=== PATIENT | male | born 1950 | race Caucasian/White ===

== ENCOUNTER 2020-07-28 17:21 | Observation (INO) | payer MEDICARE ==
[~2020-07-28] VITALS: Ht 180.3 cm; Wt 136.1 kg
[2020-07-28 18:25] LABS: Alanine Aminotransfer (ALT/SGP 79 U/L (12-78); Albumin, Blood 3.3 g/dL (3.4-5.0); Albumin/Globulin Ratio 0.8 (0.8-1.8); Alk Phos 317 U/L (50-136); Anion Gap 7 mmol/L (6-16); Aspartate Aminotrans (AST/SGOT 120 U/L (12-37); Bilirubin, Total 1.5 mg/dL (0.1-1.0); Blood Urea Nitrogen 57 mg/dL (8-24); Bun/Creatinine Ratio 16.8 (12.0-20.0); CO2, Blood 24 mmol/L (21-32); Calcium, Blood 8.7 mg/dL (8.5-10.1); Chloride, Blood 109 mmol/L (98-108); Globulin, Blood 4.2 g/dL (2.2-4.0); Glomerular Filtration Rate 19 (60-); Glucose, Blood 144 mg/dL (70-99); Potassium, Blood 4.4 mmol/L (3.5-5.5); Sodium, Blood 140 mmol/L (136-145); Total Protein, Blood 7.5 g/dL (6.4-8.2); Troponin I <0.015 ng/mL (0.000-0.040)
[2020-07-28 18:34] LABS: BASOPHILS ABSOLUTE AUTO 0.04 K/mm3 (0.00-0.23); BASOPHILS PERCENT AUTO 0 % (0-2); EOSINOPHILS ABSOLUTE AUTO 0.05 K/mm3 (0.00-0.68); EOSINOPHILS PERCENT AUTO 0 % (0-6); Hematocrit 42.3 % (37.0-53.0); Hemoglobin 13.9 g/dL (13.5-17.5); IMMATURE GRAN ABSOLUTE AUTO 0.05 K/mm3 (0.00-0.10); IMMATURE GRAN PERCENT AUTO 0 % (0-1); LYMPHOCYTES ABSOLUTE AUTO 0.81 K/mm3 (0.84-5.20); LYMPHOCYTES PERCENT AUTO 7 % (21-46); MONOCYTES ABSOLUTE AUTO 0.61 K/mm3 (0.16-1.47); MONOCYTES PERCENT AUTO 5 % (4-13); Mean Corpuscular HGB 28.4 pg (26.0-34.0); Mean Corpuscular HGB Conc 32.9 g/dL (31.5-36.5); Mean Corpuscular Volume 86 fL (80-100); Mean Platelet Volume 9.9 fL (9.1-12.4); NEUTROPHILS ABSOLUTE AUTO 10.15 K/mm3 (1.96-9.15); NEUTROPHILS PERCENT AUTO 87 % (41-73); Platelet Count 286 K/mm3 (150-400); RDW Coefficient Variation 13.9 % (11.7-14.2); RDW Standard Deviation 43.8 fL (35.1-46.3); White Blood Cell Count 11.71 K/mm3 (4.00-11.30)
[2020-07-28] MEDS ORDERED: Ativan0.5 MG PO (20:55)
[2020-07-28] MEDS ORDERED: FLUT1DIS2 (22:27)
[2020-07-28] MEDS ORDERED: VERA240ER PO (22:27)
[2020-07-28] MEDS ORDERED: SERT100 PO (22:28)
[2020-07-28] MEDS ORDERED: GUAI600T33 PO (22:29)
[2020-07-28] MEDS ORDERED: Flonase 0.05% N16 GM (22:31)
[2020-07-28] MEDS ORDERED: SODBIC650 PO (22:33)
[2020-07-29 06:08] LABS: Albumin, Blood 2.7 g/dL (3.4-5.0); Albumin/Globulin Ratio 0.7 (0.8-1.8); Bilirubin, Total 3.1 mg/dL (0.1-1.0); Calcium, Blood 8.9 mg/dL (8.5-10.1); Creatinine, Blood 3.32 mg/dL (0.60-1.20); Globulin, Blood 3.8 g/dL (2.2-4.0); Potassium, Blood 4.6 mmol/L (3.5-5.5); Total Protein, Blood 6.5 g/dL (6.4-8.2)
[2020-07-29] MEDS ORDERED: CHLO25B PO (16:17)
[2020-07-29] MEDS ORDERED: TAMS.4ER PO (16:17)
[2020-07-29] MEDS ORDERED: Hydralazine HCl10 MG PO (16:25)
[2020-07-29] MEDS ORDERED: OMEP20ER PO (16:25)
--- NOTE | 2020-07-30 04:14 | NUR ---
SHIFT SUMMARY A/O, ABLE TO MAKE NEEDS KNOWN. COOPERATIVE WITH CARE. CALLS AND ANSWERS QUESTIONS APPROPRIATELY. C/O PAIN/DISCOMFORT TO EPIGASTRIC REGION OF ABDOMEN; RATING 3-4/10. RECIEVED ONE TIME ORDER FROM ON-CALL PROVIDER FOR MORPHINE 2MG. STATED RELIEF AND NOW PAIN IS CREEPING BACK UP. APPEARED TO REST OFF AND ON OVERNIGHT. INDPENDENT IN ROOM. TELE RUNNING SR IN THE 70s. VSS/AFEBRILE. BED REMAINS IN LOWEST POSITION. CALL LIGHT AND BELONGINS WITHIN REACH. CONTINUE WITH CURRENT PLAN OF CARE. REPORT TO ONCOMING RN.
[2020-07-30 05:43] LABS: BASOPHILS ABSOLUTE AUTO 0.04 K/mm3 (0.00-0.23); BASOPHILS PERCENT AUTO 0 % (0-2); EOSINOPHILS ABSOLUTE AUTO 0.06 K/mm3 (0.00-0.68); EOSINOPHILS PERCENT AUTO 1 % (0-6); Hematocrit 39.4 % (37.0-53.0); Hemoglobin 12.8 g/dL (13.5-17.5); IMMATURE GRAN ABSOLUTE AUTO 0.02 K/mm3 (0.00-0.10); IMMATURE GRAN PERCENT AUTO 0 % (0-1); LYMPHOCYTES ABSOLUTE AUTO 0.54 K/mm3 (0.84-5.20); LYMPHOCYTES PERCENT AUTO 6 % (21-46); MONOCYTES PERCENT AUTO 7 % (4-13); Mean Corpuscular HGB 28.4 pg (26.0-34.0); Mean Corpuscular HGB Conc 32.5 g/dL (31.5-36.5); Mean Corpuscular Volume 87 fL (80-100); Mean Platelet Volume 10.2 fL (9.1-12.4); NEUTROPHILS ABSOLUTE AUTO 8.29 K/mm3 (1.96-9.15); NEUTROPHILS PERCENT AUTO 86 % (41-73); Platelet Count 219 K/mm3 (150-400); RDW Coefficient Variation 14.3 % (11.7-14.2); RDW Standard Deviation 45.5 fL (35.1-46.3); Red Blood Cell Count 4.51 M/mm3 (4.30-5.90); White Blood Cell Count 9.65 K/mm3 (4.00-11.30)
[2020-07-30 06:08] LABS: Albumin, Blood 2.6 g/dL (3.4-5.0); Albumin/Globulin Ratio 0.7 (0.8-1.8); Bilirubin, Total 4.1 mg/dL (0.1-1.0); Bun/Creatinine Ratio 15.3 (12.0-20.0); Calcium, Blood 8.8 mg/dL (8.5-10.1); Creatinine, Blood 3.59 mg/dL (0.60-1.20); Globulin, Blood 3.9 g/dL (2.2-4.0); Potassium, Blood 4.6 mmol/L (3.5-5.5); Total Protein, Blood 6.5 g/dL (6.4-8.2)
[2020-07-30 15:30] LABS: Albumin, Blood 2.8 g/dL (3.4-5.0); Albumin/Globulin Ratio 0.7 (0.8-1.8); Bilirubin, Total 1.8 mg/dL (0.1-1.0); Bun/Creatinine Ratio 15.2 (12.0-20.0); Calcium, Blood 8.6 mg/dL (8.5-10.1); Creatinine, Blood 3.68 mg/dL (0.60-1.20); Globulin, Blood 4.1 g/dL (2.2-4.0); Potassium, Blood 4.4 mmol/L (3.5-5.5); Total Protein, Blood 6.9 g/dL (6.4-8.2)
--- NOTE | 2020-07-30 17:06 | NUR ---
DISCHARGED HOME WITH SON PRESENT. ALL QUESTIONS ANSWERED, VERBALIZED UNDERSTANDING OF THE DISCHARGE INSTRUCTIONS. ALL PERSONAL BELONINGS SENT HOME WITH PATIENT. FOLLOW UP APPOINTMENT MADE FOR 08/03/2020, WITH LABS SCHEDULED TO BE DRAWN, ALSO ON THAT DAY.
== END 2020-07-30 16:59 | disposition home or self-care (01) ==
LOC: ER 17:21 → MEDS 17:22
PROVIDERS: Internal Medicine; Physician Assistant; ADMIT Internal Medicine
DX: K80.20 Calculus of gallbladder without cholecystitis without obstruction (principal); R79.89 Other specified abnormal findings of blood chemistry; J44.9 Chronic obstructive pulmonary disease, unspecified; I12.9 Hypertensive chronic kidney disease with stage 1 through stage 4 chronic kidney disease, or unspecified chronic kidney disease; N18.4 Chronic kidney disease, stage 4 (severe); K22.70 Barrett's esophagus without dysplasia; R16.1 Splenomegaly, not elsewhere classified; K44.9 Diaphragmatic hernia without obstruction or gangrene; K57.90 Diverticulosis of intestine, part unspecified, without perforation or abscess without bleeding; I25.2 Old myocardial infarction; Z88.0 Allergy status to penicillin; Z88.7 Allergy status to serum and vaccine; Z87.891 Personal history of nicotine dependence; Z91.041 Radiographic dye allergy status
CPT/HCPCS: 36415; 71046; 74176; 74181; 76705; 80053; 83690; 84484; 85025; 93005; 93010; 94640; 96361; 96372; 96374; 96375; 96376; 99285-25; A9270; G0008; G0378; J0360; J1644; J1956; J2270; J2405; J7030; J7050; Q2038

== ENCOUNTER 2020-10-13 22:44 | Emergency (ER) | payer MEDICARE ==
[~2020-10-13] VITALS: Ht 177.8 cm; Wt 115.6 kg
[~2020-10-13 22:44] MED LIST: Ativan0.5 MG PO; CHLO25B PO; FLUT1DIS2; Flonase 0.05% N16 GM; GUAI600T33 PO; Hydralazine HCl10 MG PO; OMEP20ER PO; SERT100 PO; SODBIC650 PO; TAMS.4ER PO; VERA240ER PO
[2020-10-14 00:11] LABS: BASOPHILS ABSOLUTE AUTO 0.08 K/mm3 (0.00-0.23); BASOPHILS PERCENT AUTO 1 % (0-2); EOSINOPHILS ABSOLUTE AUTO 0.17 K/mm3 (0.00-0.68); EOSINOPHILS PERCENT AUTO 2 % (0-6); Hematocrit 44.6 % (37.0-53.0); Hemoglobin 14.3 g/dL (13.5-17.5); IMMATURE GRAN ABSOLUTE AUTO 0.02 K/mm3 (0.00-0.10); IMMATURE GRAN PERCENT AUTO 0 % (0-1); LYMPHOCYTES ABSOLUTE AUTO 1.65 K/mm3 (0.84-5.20); LYMPHOCYTES PERCENT AUTO 18 % (21-46); MONOCYTES PERCENT AUTO 9 % (4-13); Mean Corpuscular HGB 28.1 pg (26.0-34.0); Mean Corpuscular HGB Conc 32.1 g/dL (31.5-36.5); Mean Corpuscular Volume 88 fL (80-100); Mean Platelet Volume 10.2 fL (9.1-12.4); NEUTROPHILS ABSOLUTE AUTO 6.55 K/mm3 (1.96-9.15); NEUTROPHILS PERCENT AUTO 71 % (41-73); Platelet Count 206 K/mm3 (150-400); RDW Coefficient Variation 15.6 % (11.7-14.2); RDW Standard Deviation 50.5 fL (35.1-46.3); Red Blood Cell Count 5.08 M/mm3 (4.30-5.90); White Blood Cell Count 9.27 K/mm3 (4.00-11.30)
[2020-10-14 00:29] LABS: Albumin, Blood 3.3 g/dL (3.4-5.0); Albumin/Globulin Ratio 0.8 (0.8-1.8); Bilirubin, Total 0.6 mg/dL (0.1-1.0); Bun/Creatinine Ratio 10.6 (12.0-20.0); Calcium, Blood 8.5 mg/dL (8.5-10.1); Creatinine, Blood 4.24 mg/dL (0.60-1.20); Potassium, Blood 4.2 mmol/L (3.5-5.5); Total Protein, Blood 7.3 g/dL (6.4-8.2)
[2020-10-14 03:07] LABS: Source, Urine Clean Catch
[2020-10-14 03:09] LABS: Bilirubin, Urine Neg (Neg); Blood, Urine Neg (Neg); Glucose Qualitative, Urine Neg (Neg); Ketones, Urine Neg (Neg); Leukocyte Esterase, Urine 1+ (Neg); Nitrite, Urine Neg (Neg); Protein, Urine 2+ (Neg); Specific Gravity, Urine 1.015 (1.003-1.022); Urobilinogen, Urine NORM (Normal); pH, Urine 6.5 (5.0-8.0)
[2020-10-14 03:13] LABS: Appearance, Urine Clear (Clear); Color, Urine Yellow (P-Yellow)
[2020-10-14 03:15] LABS: Bacteria Mod /hpf; Red Blood Cells, Urine 0-2 /hpf (0-2); Squamous Epithelial Cells Not Seen /hpf (Few)
== END 2020-10-14 03:47 | disposition home or self-care (01) ==
LOC: ER 22:44
PROVIDERS: Emergency Medicine
DX: K59.00 Constipation, unspecified (principal); J44.9 Chronic obstructive pulmonary disease, unspecified; Z79.899 Other long term (current) drug therapy; Z88.0 Allergy status to penicillin; Z91.041 Radiographic dye allergy status; Z88.7 Allergy status to serum and vaccine; Z87.891 Personal history of nicotine dependence
CPT/HCPCS: 36415; 74018; 80053; 81001; 83690; 85025; 87086; 93005; 93010; 99284-25; A9270

== ENCOUNTER 2024-01-10 21:27 | Observation (INO) | payer MEDICARE, OTHER ==
[~2024-01-10] VITALS: Ht 177.8 cm; Wt 102.6 kg
[~2024-01-10 21:27] MED LIST changes: +ALLO100 PO; +AZIT250 PO; +IRBE75 PO; +NAPR500 PO; +PRED20 PO
[2024-01-10 22:22] LABS: BASOPHILS ABSOLUTE AUTO 0.07 K/mm3 (0.00-0.23); BASOPHILS PERCENT AUTO 1 % (0-2); EOSINOPHILS ABSOLUTE AUTO 0.24 K/mm3 (0.00-0.68); EOSINOPHILS PERCENT AUTO 2 % (0-6); Hematocrit 36.2 % (37.0-53.0); Hemoglobin 11.8 g/dL (13.5-17.5); IMMATURE GRAN PERCENT AUTO 1 % (0-1); LYMPHOCYTES ABSOLUTE AUTO 1.35 K/mm3 (0.84-5.20); LYMPHOCYTES PERCENT AUTO 11 % (21-46); MONOCYTES ABSOLUTE AUTO 0.64 K/mm3 (0.16-1.47); MONOCYTES PERCENT AUTO 5 % (4-13); Mean Corpuscular HGB 29.3 pg (26.0-34.0); Mean Corpuscular HGB Conc 32.6 g/dL (31.5-36.5); Mean Corpuscular Volume 90 fL (80-100); NEUTROPHILS ABSOLUTE AUTO 10.51 K/mm3 (1.96-9.15); NEUTROPHILS PERCENT AUTO 81 % (41-73); RDW Coefficient Variation 14.8 % (11.7-14.2); RDW Standard Deviation 48.5 fL (35.1-46.3); Red Blood Cell Count 4.03 M/mm3 (4.30-5.90); White Blood Cell Count 12.91 K/mm3 (4.00-11.30)
[2024-01-10 22:49] LABS: Platelet Count 243 K/mm3 (150-400)
[2024-01-10 22:52] LABS: Albumin, Blood 2.9 g/dL (3.4-5.0); Albumin/Globulin Ratio 0.8 (0.8-1.8); Bilirubin, Total 0.7 mg/dL (0.1-1.0); Bun/Creatinine Ratio 17.9 (12.0-20.0); Calcium, Blood 8.7 mg/dL (8.5-10.1); Creatinine, Blood 3.68 mg/dL (0.60-1.20); Globulin, Blood 3.6 g/dL (2.2-4.0); Total Protein, Blood 6.5 g/dL (6.4-8.2)
[2024-01-11] VITALS (9 sets, daily range): BP systolic 139–169; BP diastolic 70–97
[2024-01-11] MEDS ORDERED: Albuterol 2.5 MG/3 ML VIAL INH ONE (00:05)
[2024-01-11] MEDS ORDERED: Aspirin 81 MG Chew PO ONE (01:25)
[2024-01-11] MEDS ORDERED: Clopidogrel Bisulfate 300 MG Cap PO ONE (01:25)
[2024-01-11] MEDS ORDERED: Metoprolol Tartrate 25 MG Tab PO SCH (02:00)
[2024-01-11] MEDS ORDERED: Furosemide 10 MG/ML 4ML Vial IV SCH (02:00)
[2024-01-11 02:04] LABS: Anti-Xa UFH, PHA Monitoring <0.10 IU/mL; International Normalized Ratio 0.94; Prothrombin Time Results 10.1 Sec (9.7-11.5)
[2024-01-11] MEDS ORDERED: Heparin Sodium 5000 Units/ML 1ML MDV IV ONE (02:25)
[2024-01-11] MEDS ORDERED: Heparin Sodium,Porcine/0.5 NS 500 ML IV SCH (02:25)
--- NOTE | 2024-01-11 04:55 | NUR ---
0150 Pt arrived from ED via didierranam with rn in attendance. Ambulated from hallway to bed with cane and SBA in room PCU 14, yosef fair. Pt reports ambulation near or at baseline. Full admission completed, maintain NPO for possible intervention after Cards Consult. Oriented to room and unit per unit standards. Reviewed shift plan of care withpt, all questions answered. Please see full assessment for additional details. Pt denies acute pain, endorses chronic back pain at baseline. No further complaints or concerns at this time, will continue to monitor.
[2024-01-11 06:27] LABS: BASOPHILS ABSOLUTE AUTO 0.05 K/mm3 (0.00-0.23); BASOPHILS PERCENT AUTO 0 % (0-2); EOSINOPHILS PERCENT AUTO 2 % (0-6); Hemoglobin 10.9 g/dL (13.5-17.5); IMMATURE GRAN ABSOLUTE AUTO 0.05 K/mm3 (0.00-0.10); IMMATURE GRAN PERCENT AUTO 0 % (0-1); LYMPHOCYTES ABSOLUTE AUTO 1.54 K/mm3 (0.84-5.20); LYMPHOCYTES PERCENT AUTO 13 % (21-46); MONOCYTES ABSOLUTE AUTO 0.67 K/mm3 (0.16-1.47); MONOCYTES PERCENT AUTO 6 % (4-13); Mean Corpuscular HGB 30.1 pg (26.0-34.0); Mean Corpuscular Volume 91 fL (80-100); Mean Platelet Volume 10.4 fL (9.1-12.4); NEUTROPHILS ABSOLUTE AUTO 8.97 K/mm3 (1.96-9.15); NEUTROPHILS PERCENT AUTO 78 % (41-73); Platelet Count 211 K/mm3 (150-400); RDW Coefficient Variation 14.8 % (11.7-14.2); Red Blood Cell Count 3.62 M/mm3 (4.30-5.90); White Blood Cell Count 11.48 K/mm3 (4.00-11.30)
[2024-01-11 07:00] LABS: Anion Gap 14 mmol/L (3-11); Blood Urea Nitrogen 66 mg/dL (8-24); Bun/Creatinine Ratio 17.1 (12.0-20.0); CO2, Blood 20 mmol/L (21-32); Calcium, Blood 8.6 mg/dL (8.5-10.1); Chloride, Blood 115 mmol/L (98-108); Cholesterol 139 mg/dL (50-200); Creatinine, Blood 3.86 mg/dL (0.60-1.20); Glomerular Filtration Rate 16 (60-); Glucose, Blood 91 mg/dL (70-99); HDL Cholesterol 68 mg/dL (>39); LDL/HDL RATIO 0.9; Low Density Lipoprotein Chol 62 mg/dL (0-110); Magnesium, Blood 2.1 mg/dL (1.6-2.4); Potassium, Blood 5.7 mmol/L (3.5-5.5); Sodium, Blood 143 mmol/L (136-145); Triglycerides 45 mg/dL (30-160); Very Low Density Lipoprot Chol 9 mg/dL (6-32)
[2024-01-11] MEDS ORDERED: HydrALAZINE HCl 50 MG Tab PO SCH (09:00)
[2024-01-11] MEDS ORDERED: Losartan Potassium 25 MG Tab PO SCH (09:00)
[2024-01-11] MEDS ORDERED: Atorvastatin 40 MG Tab PO SCH (09:00)
[2024-01-11] MEDS ORDERED: Clopidogrel Bisulfate 75 MG Tab PO SCH (09:00)
[2024-01-11] MEDS ORDERED: Aspirin 81 MG Chew PO SCH (09:00)
[2024-01-11] MEDS ORDERED: Bumetanide 0.25 MG/ML 4ML ViaL IV SCH ×2 (10:26→10:35)
[2024-01-11] MEDS ORDERED: Sodium Zirconium Cyclosilicate 10 GM Packet PO SCH (10:27)
--- NOTE | 2024-01-11 11:55 | NUR ---
24 HOUR URINE BEGAN AT 1141 8/. IT WILL END AT 1141 8/.
--- NOTE | 2024-01-11 12:46 | NUR ---
MORNING SUMMARY THE PT IS A&OX4, CALLS APPROPRAITELY, AND MAKES HIS NEEDS KNOWN. HE DID HAVE DR. MEDINA CONSULTED AND HE STOPPED BY THE PT'S ROOM. NEW MEDICATIONS STARTED AND THE PT WAS STARTED ON A 24HR URINE STUDY. SIGNS HUNG ON THE DOOR AND TOILET. A RENAL US WAS DONE TODAY. ALSO, DR. HERNANDES STOPPED BY TO EVALUATE THE PT AND A STRESS TEST WAS ORDERED POST ECHO. THE PT IS SCHEDULED TO HAVE THE RESTING PORTION OF HIS STRESS TEST THIS EARLY AFTERNOON, AND THE STRESS PORTION TOMORROW 01/11 ABOUT 0730. THE PT'S HEP GTT WAS D/C'D PER DR. HERNANDES AND DR. BOSS STARTED THE PT ON HEP INJ BID. THE PT'S SON SVETA WAS UPDATED ON CARE VIA PHONE. SEE NOTES FOR UPDATES.
--- NOTE | 2024-01-11 17:10 | NUR ---
SHIFT SUMMARY PT REMAINS A&OX4, CALLS APPROPRAITELY, AND MAKES HIS NEEDS KNOWN. HE IS A 1P SBA W/ CANE FOR TRANSFERING. THE PT HAS A 24 HOUR URINE GOING AT THIS TIME. HE HAD THE RESTING PORTION OF HIS STRESS TEST TODAY AND WILL HAVE THE SECOND PART ABOUT 0730 01/11. NO ACUTE EVENTS OR CHANGES SINCE MORNING SUMMARY. ON TELE THE PT IS SR 70'S, AND BP STABLE. HE REMAINS ON RA W/ SP02 >90%. HE ONLY HAS SOB WHEN LAYING FLAT. PROVIDERS AWARE. SEE NOTES FOR ANY UPDATES.
[2024-01-11] MEDS ORDERED: Acetaminophen 325 MG TABLET PO PRN (17:45)
[2024-01-11] MEDS ORDERED: Atorvastatin 10 MG Tab PO SCH (21:00)
[2024-01-11] MEDS ORDERED: Heparin Sodium,Porcine 5,000 UNIT/0.5 ML SDV SC SCH (21:00)
[2024-01-11] MEDS ORDERED: Losartan Potassium 50 MG Tab PO SCH (21:00)
[2024-01-12 03:35] VITALS: BP 146/73
[2024-01-12 03:57] LABS: Hematocrit 34.6 % (37.0-53.0); Hemoglobin 11.2 g/dL (13.5-17.5)
[2024-01-12 04:19] LABS: Albumin, Blood 2.6 g/dL (3.4-5.0); Anion Gap 13 mmol/L (3-11); Blood Urea Nitrogen 68 mg/dL (8-24); Bun/Creatinine Ratio 15.6 (12.0-20.0); CO2, Blood 21 mmol/L (21-32); Calcium, Blood 8.5 mg/dL (8.5-10.1); Chloride, Blood 112 mmol/L (98-108); Creatinine, Blood 4.35 mg/dL (0.60-1.20); Glomerular Filtration Rate 14 (60-); Glucose, Blood 91 mg/dL (70-99); Magnesium, Blood 2.2 mg/dL (1.6-2.4); Phosphorus, Blood 5.2 mg/dL (2.5-4.9); Potassium, Blood 5.5 mmol/L (3.5-5.5); Sodium, Blood 140 mmol/L (136-145)
--- NOTE | 2024-01-12 04:54 | NUR ---
1915 Assumed care of pt, bedside report completed. Shift plan of care reviewed with pt, all questions answered. Pt with uneventful shift, repeatedly denies chest pain/pressure. Has been NPO since 2400 for day 2 of Stress Test. Pt up to BR with SBA and cane. Pt reports is ambulation at baseline, does call appropriately each time for Falls Risk Protocol. 24 hour urine in process, will be complete at 1140 today. Please see full assessment for additional details. No further complaints or concerns at this time, will continue to monitor.
[2024-01-12 07:01] VITALS: BP 145/70
[2024-01-12] MEDS ORDERED: Regadenoson 0.4 MG/5 ML SYRINGE ONE (07:23)
[2024-01-12] MEDS ORDERED: Aminophylline 250MG / 10ML 10 ML Vial ONE (07:23)
[2024-01-12] MEDS ORDERED: Calcium Acetate 667 MG Gel Cap PO SCH (08:30)
[2024-01-12] MEDS ORDERED: Sodium Zirconium Cyclosilicate 10 GM Packet PO SCH (09:00)
[2024-01-12] MEDS ORDERED: Bumetanide 0.25 MG/ML 4ML ViaL IV SCH (09:00)
[2024-01-12] MEDS ORDERED: Sodium Bicarbonate 650 MG Tab PO SCH ×2 (09:00)
[2024-01-12] MEDS ORDERED: Losartan Potassium 25 MG Tab PO SCH (09:00)
[2024-01-12 11:32] VITALS: BP 121/97
[2024-01-12] MEDS ORDERED: ASPI81CH PO (11:50)
[2024-01-12] MEDS ORDERED: METO25 PO (11:50)
[2024-01-12] MEDS ORDERED: Calcium Acetat667 MG PO (11:50)
[2024-01-12] MEDS ORDERED: ATOR20 PO (11:50)
[2024-01-12] MEDS ORDERED: LOKELMA10 GM PO (11:51)
[2024-01-12] MEDS ORDERED: BUME2 PO (11:51)
--- NOTE | 2024-01-12 12:18 | NUR ---
D/C SUMMARY THE PT WAS DISCHARGED AT 1215. HIS IV WAS D/C'D BY THE COMPLIANCE REVIEW SPECIALIST. I WENT OVER DISCHARGE WITH THE PT AND HIS SON WHO WAS ON THE PHONE. VS STABLE. MEDICATIONS FAXED TO [facility].
[2024-01-12 12:41] LABS: Protein, Urine Quantitative 14.4 mg/dL (0.0-11.9)
== END 2024-01-12 12:30 | disposition home or self-care (01) ==
LOC: ER 21:27 → PCU 21:28
PROVIDERS: Emergency Medicine; Internal Medicine Nephrology; ADMIT Family Medicine
DX: I21.4 Non-ST elevation (NSTEMI) myocardial infarction (principal); I35.0 Nonrheumatic aortic (valve) stenosis; E87.5 Hyperkalemia; R79.89 Other specified abnormal findings of blood chemistry; I13.0 Hypertensive heart and chronic kidney disease with heart failure and stage 1 through stage 4 chronic kidney disease, or unspecified chronic kidney disease; I50.9 Heart failure, unspecified; N18.4 Chronic kidney disease, stage 4 (severe); J44.9 Chronic obstructive pulmonary disease, unspecified; N25.81 Secondary hyperparathyroidism of renal origin; E87.20 Acidosis, unspecified; Z87.891 Personal history of nicotine dependence; Z88.0 Allergy status to penicillin; Z91.041 Radiographic dye allergy status; Z79.899 Other long term (current) drug therapy
CPT/HCPCS: 36415; 71046; 76770; 78452; 80048; 80053; 80061; 80069; 83735; 83880; 84132; 84156; 84443; 84484; 85014; 85018; 85025; 85520; 85610; 85730; 93005; 93010; 93017; 93306; 93970; 94640; 94664; 96372; 96374; 96375; 96376; 99285-25; A9270; A9500; G0378; J0280; J1644; J1940; J2785

== ENCOUNTER 2024-03-10 06:52 | Day surgery (SDC) | payer MEDICARE, OTHER ==
[~2024-03-10] VITALS: Ht 177.8 cm; Wt 96.8 kg
[~2024-03-10 06:52] MED LIST changes: +ASPI81CH PO; +ATOR20 PO; +B COMPLEX VITAMIN PO; +BUME2 PO; +Calcium Acetat667 MG PO; +ERGO400 PO; +FLUTICASONE-SA1 EAC8 IH; +LOKELMA10 GM PO; +METO25 PO; +MUCINEX SINUS MAX
[2024-03-10] MEDS ORDERED: NS 250 ML IV ONE (06:57)
[2024-03-10] MEDS ORDERED: Heparin Sodium 1000 Units/ML 10ML MDV ONE (06:57)
[2024-03-10 07:17] VITALS: BP 138/70
[2024-03-10] MEDS ORDERED: WIXELA 250-501 EAC1 INH (07:20)
[2024-03-10] MEDS ORDERED: Heparin Sodium 10,000 Units/ML 1ML MDV ONE (07:40)
--- NOTE | 2024-03-10 08:09 | NUR ---
PT BACK FROM LAB AT THIS TIME, ALERT AND ORIENTD, NO SEDATION WAS USED. SITE RYAN, PRINCESS. PT. SON TO DRIVE PT HOME.
[2024-03-10 08:11] VITALS: BP 144/67
--- NOTE | 2024-03-10 08:30 | NUR ---
PT son to bedside. Plans for discharge, pt able to get self dressed without difficulty. Pt discharge instructions reviewed. No IV in place, no sedation given. Pt verbalized understanding of discharge instructions and site care. Follow up planned with pcp. no further questions from pt at this time.
== END 2024-03-10 08:30 | disposition home or self-care (01) ==
LOC: MHTC 06:52
DX: I12.0 Hypertensive chronic kidney disease with stage 5 chronic kidney disease or end stage renal disease (principal); N18.6 End stage renal disease; E78.5 Hyperlipidemia, unspecified; J44.9 Chronic obstructive pulmonary disease, unspecified; Z87.891 Personal history of nicotine dependence; Z88.0 Allergy status to penicillin; Z88.7 Allergy status to serum and vaccine; Z88.8 Allergy status to other drugs, medicaments and biological substances; Z79.82 Long term (current) use of aspirin; Z79.899 Other long term (current) drug therapy; Z93.1 Gastrostomy status; Z90.49 Acquired absence of other specified parts of digestive tract
CPT/HCPCS: 71046; 76937; 80048; 85025; 96365; 99284-25; C1750; C1769; C1894; J1644; J2597; J7050

== ENCOUNTER 2024-03-10 11:38 | Emergency (ER) | payer MEDICARE, OTHER ==
[~2024-03-10] VITALS: Ht 177.8 cm; Wt 96.6 kg
[~2024-03-10 11:38] MED LIST changes: +WIXELA 250-501 EAC1 INH
[2024-03-10 13:05] LABS: BASOPHILS ABSOLUTE AUTO 0.07 K/mm3 (0.00-0.23); BASOPHILS PERCENT AUTO 1 % (0-2); EOSINOPHILS ABSOLUTE AUTO 0.17 K/mm3 (0.00-0.68); EOSINOPHILS PERCENT AUTO 2 % (0-6); Hematocrit 32.9 % (37.0-53.0); Hemoglobin 10.7 g/dL (13.5-17.5); IMMATURE GRAN ABSOLUTE AUTO 0.03 K/mm3 (0.00-0.10); IMMATURE GRAN PERCENT AUTO 0 % (0-1); LYMPHOCYTES PERCENT AUTO 13 % (21-46); MONOCYTES ABSOLUTE AUTO 0.84 K/mm3 (0.16-1.47); MONOCYTES PERCENT AUTO 7 % (4-13); Mean Corpuscular HGB 30.8 pg (26.0-34.0); Mean Corpuscular HGB Conc 32.5 g/dL (31.5-36.5); Mean Corpuscular Volume 95 fL (80-100); Mean Platelet Volume 10.2 fL (9.1-12.4); NEUTROPHILS ABSOLUTE AUTO 8.76 K/mm3 (1.96-9.15); NEUTROPHILS PERCENT AUTO 77 % (41-73); Platelet Count 253 K/mm3 (150-400); RDW Standard Deviation 55.1 fL (35.1-46.3); Red Blood Cell Count 3.47 M/mm3 (4.30-5.90); White Blood Cell Count 11.37 K/mm3 (4.00-11.30)
[2024-03-10 13:38] LABS: Bun/Creatinine Ratio 18.7 (12.0-20.0); Calcium, Blood 9.7 mg/dL (8.5-10.1); Creatinine, Blood 4.75 mg/dL (0.60-1.20)
[2024-03-10] MEDS ORDERED: NS IV ONE (17:25)
[2024-03-10] MEDS ORDERED: DESMOPRESSIN ACETATE IV ONE (17:25)
[2024-03-10 19:15] VITALS: BP 98/57
== END 2024-03-10 19:29 | disposition home or self-care (01) ==
LOC: ER 11:38
PROVIDERS: Emergency Medicine
DX: T82.838A Hemorrhage due to vascular prosthetic devices, implants and grafts, initial encounter (principal); Y71.8 Miscellaneous cardiovascular devices associated with adverse incidents, not elsewhere classified; I12.0 Hypertensive chronic kidney disease with stage 5 chronic kidney disease or end stage renal disease; N18.6 End stage renal disease; J44.9 Chronic obstructive pulmonary disease, unspecified; E78.00 Pure hypercholesterolemia, unspecified; Z99.2 Dependence on renal dialysis; Z88.0 Allergy status to penicillin; Z88.8 Allergy status to other drugs, medicaments and biological substances; Z88.7 Allergy status to serum and vaccine; Z79.899 Other long term (current) drug therapy; Z79.82 Long term (current) use of aspirin
CPT/HCPCS: 71046; 80048; 85025; J2597

== ENCOUNTER 2024-03-12 10:59 | Emergency (ER) | payer MEDICARE, OTHER ==
[~2024-03-12] VITALS: Ht 177.8 cm; Wt 96.6 kg
[2024-03-12 11:29] LABS: BASOPHILS ABSOLUTE AUTO 0.04 K/mm3 (0.00-0.23); BASOPHILS PERCENT AUTO 0 % (0-2); EOSINOPHILS ABSOLUTE AUTO 0.22 K/mm3 (0.00-0.68); EOSINOPHILS PERCENT AUTO 2 % (0-6); Hematocrit 30.6 % (37.0-53.0); Hemoglobin 9.9 g/dL (13.5-17.5); IMMATURE GRAN ABSOLUTE AUTO 0.03 K/mm3 (0.00-0.10); IMMATURE GRAN PERCENT AUTO 0 % (0-1); LYMPHOCYTES ABSOLUTE AUTO 1.21 K/mm3 (0.84-5.20); LYMPHOCYTES PERCENT AUTO 13 % (21-46); MONOCYTES ABSOLUTE AUTO 0.77 K/mm3 (0.16-1.47); MONOCYTES PERCENT AUTO 8 % (4-13); Mean Corpuscular HGB 30.6 pg (26.0-34.0); Mean Corpuscular HGB Conc 32.4 g/dL (31.5-36.5); Mean Corpuscular Volume 94 fL (80-100); Mean Platelet Volume 9.8 fL (9.1-12.4); NEUTROPHILS ABSOLUTE AUTO 7.31 K/mm3 (1.96-9.15); NEUTROPHILS PERCENT AUTO 76 % (41-73); Platelet Count 246 K/mm3 (150-400); RDW Standard Deviation 55.6 fL (35.1-46.3); Red Blood Cell Count 3.24 M/mm3 (4.30-5.90); White Blood Cell Count 9.58 K/mm3 (4.00-11.30)
[2024-03-12 11:46] LABS: Albumin, Blood 3.3 g/dL (3.4-5.0); Albumin/Globulin Ratio 0.9 (0.8-1.8); Bilirubin, Total 0.5 mg/dL (0.1-1.0); Bun/Creatinine Ratio 19.4 (12.0-20.0); Calcium, Blood 9.6 mg/dL (8.5-10.1); Creatinine, Blood 5.09 mg/dL (0.60-1.20); Globulin, Blood 3.7 g/dL (2.2-4.0); Potassium, Blood 5.3 mmol/L (3.5-5.5)
[2024-03-12 15:10] LABS: Influenza A, PCR NEGATIVE (NEGATIVE); Influenza B, PCR NEGATIVE (NEGATIVE); Resp Syncytial Virus, PCR NEGATIVE (NEGATIVE); SARS-Cov-2 (COVID-19) PCR, MMC NEGATIVE (NEGATIVE)
[2024-03-12 16:03] VITALS: BP 136/85
== END 2024-03-12 16:03 | disposition home or self-care (01) ==
LOC: ER 10:59
PROVIDERS: Physician Assistant; Student in an Organized Health Care Education/Training Program
DX: R07.2 Precordial pain (principal); R06.02 Shortness of breath; I12.9 Hypertensive chronic kidney disease with stage 1 through stage 4 chronic kidney disease, or unspecified chronic kidney disease; N18.4 Chronic kidney disease, stage 4 (severe); E78.00 Pure hypercholesterolemia, unspecified; Z87.891 Personal history of nicotine dependence; Z79.82 Long term (current) use of aspirin; Z79.51 Long term (current) use of inhaled steroids; Z79.899 Other long term (current) drug therapy; Z88.0 Allergy status to penicillin; Z91.041 Radiographic dye allergy status; Z88.7 Allergy status to serum and vaccine
CPT/HCPCS: 0241U; 71046; 80053; 84484; 85025; 93005; 93010; 99284-25

== ENCOUNTER 2024-11-13 13:15 | Emergency (ER) | payer MEDICARE, OTHER ==
[~2024-11-13] VITALS: Ht 177.8 cm; Wt 97.5 kg
[2024-11-13 13:54] LABS: BASOPHILS ABSOLUTE AUTO 0.07 K/mm3 (0.00-0.23); BASOPHILS PERCENT AUTO 1 % (0-2); EOSINOPHILS ABSOLUTE AUTO 0.13 K/mm3 (0.00-0.68); EOSINOPHILS PERCENT AUTO 2 % (0-6); Hematocrit 31.8 % (37.0-53.0); Hemoglobin 10.3 g/dL (13.5-17.5); IMMATURE GRAN ABSOLUTE AUTO 0.03 K/mm3 (0.00-0.10); IMMATURE GRAN PERCENT AUTO 0 % (0-1); LYMPHOCYTES ABSOLUTE AUTO 1.65 K/mm3 (0.84-5.20); LYMPHOCYTES PERCENT AUTO 19 % (21-46); MONOCYTES ABSOLUTE AUTO 0.68 K/mm3 (0.16-1.47); MONOCYTES PERCENT AUTO 8 % (4-13); Mean Corpuscular HGB 31.3 pg (26.0-34.0); Mean Corpuscular HGB Conc 32.4 g/dL (31.5-36.5); Mean Corpuscular Volume 97 fL (80-100); Mean Platelet Volume 9.5 fL (9.1-12.4); NEUTROPHILS ABSOLUTE AUTO 6.13 K/mm3 (1.96-9.15); NEUTROPHILS PERCENT AUTO 71 % (41-73); Platelet Count 216 K/mm3 (150-400); RDW Coefficient Variation 13.1 % (11.7-14.2); RDW Standard Deviation 46.5 fL (35.1-46.3); Red Blood Cell Count 3.29 M/mm3 (4.30-5.90); White Blood Cell Count 8.69 K/mm3 (4.00-11.30)
[2024-11-13 14:09] LABS: Albumin, Blood 3.2 g/dL (3.4-5.0); Albumin/Globulin Ratio 0.9 (0.8-1.8); Bilirubin, Total 0.4 mg/dL (0.1-1.0); Bun/Creatinine Ratio 5.7 (12.0-20.0); Calcium, Blood 9.1 mg/dL (8.5-10.1); Creatinine, Blood 7.51 mg/dL (0.60-1.20); Globulin, Blood 3.7 g/dL (2.2-4.0); Potassium, Blood 4.3 mmol/L (3.5-5.5); Total Protein, Blood 6.9 g/dL (6.4-8.2)
[2024-11-13 18:13] VITALS: BP 132/63
[2024-11-13] MEDS ORDERED: RX Prepack 6 Tabs Oxycodone 5mg UD ONE (19:15)
[2024-11-13] MEDS ORDERED: Lidocaine 4% 1 Patch TOP ONE (19:15)
[2024-11-13] MEDS ORDERED: ASPERFLEX1 EACH TOP (19:17)
== END 2024-11-13 19:24 | disposition home or self-care (01) ==
LOC: ER 13:15
PROVIDERS: Physician Assistant
DX: R07.89 Other chest pain (principal); J44.9 Chronic obstructive pulmonary disease, unspecified; N18.4 Chronic kidney disease, stage 4 (severe); I12.9 Hypertensive chronic kidney disease with stage 1 through stage 4 chronic kidney disease, or unspecified chronic kidney disease; Z88.0 Allergy status to penicillin; Z91.041 Radiographic dye allergy status; Z88.7 Allergy status to serum and vaccine; Z79.899 Other long term (current) drug therapy; Z79.82 Long term (current) use of aspirin; Z90.49 Acquired absence of other specified parts of digestive tract; Z87.891 Personal history of nicotine dependence
CPT/HCPCS: 71046; 80053; 83880; 84484; 85025; 93005; 93010; 99285-25; A9270

== ENCOUNTER 2024-12-12 20:11 | Emergency (ER) | payer MEDICARE, OTHER ==
[~2024-12-12] VITALS: Ht 177.8 cm; Wt 96.6 kg
[~2024-12-12 20:11] MED LIST changes: +ASPERFLEX1 EACH TOP
[2024-12-12 20:34] LABS: BASOPHILS ABSOLUTE AUTO 0.07 K/mm3 (0.00-0.23); BASOPHILS PERCENT AUTO 1 % (0-2); EOSINOPHILS ABSOLUTE AUTO 0.18 K/mm3 (0.00-0.68); EOSINOPHILS PERCENT AUTO 2 % (0-6); Hematocrit 35.2 % (37.0-53.0); Hemoglobin 11.6 g/dL (13.5-17.5); IMMATURE GRAN ABSOLUTE AUTO 0.02 K/mm3 (0.00-0.10); IMMATURE GRAN PERCENT AUTO 0 % (0-1); LYMPHOCYTES ABSOLUTE AUTO 1.97 K/mm3 (0.84-5.20); LYMPHOCYTES PERCENT AUTO 19 % (21-46); MONOCYTES ABSOLUTE AUTO 0.89 K/mm3 (0.16-1.47); MONOCYTES PERCENT AUTO 8 % (4-13); Mean Corpuscular HGB Conc 33.0 g/dL (31.5-36.5); Mean Corpuscular Volume 96 fL (80-100); NEUTROPHILS ABSOLUTE AUTO 7.49 K/mm3 (1.96-9.15); NEUTROPHILS PERCENT AUTO 71 % (41-73); NRBC ABSOLUTE 0.00 K/mm3 (0.00-0.02); NRBC Auto 0.0 /100 WBC (0.0-0.2); Platelet Count 251 K/mm3 (150-400); RDW Coefficient Variation 13.2 % (11.7-14.2); RDW Standard Deviation 46.1 fL (35.1-46.3)
[2024-12-12 20:59] LABS: Anion Gap 8.0 mmol/L (3-11); Blood Urea Nitrogen 36.0 mg/dL (8-24); CO2, Blood 33.0 mmol/L (21-32); Calcium, Blood 9.5 mg/dL (8.5-10.1); Chloride, Blood 102.0 mmol/L (98-108); Creatinine, Blood 5.86 mg/dL (0.60-1.20); Glucose, Blood 100.0 mg/dL (70-99); Potassium, Blood 4.1 mmol/L (3.5-5.5); Sodium, Blood 139.0 mmol/L (136-145)
[2024-12-12] MEDS ORDERED: ACET500 PO (22:04)
[2024-12-12 23:13] VITALS: BP 126/62
== END 2024-12-12 23:16 | disposition home or self-care (01) ==
LOC: ER 20:11
PROVIDERS: Emergency Medicine
DX: M79.661 Pain in right lower leg (principal); J44.9 Chronic obstructive pulmonary disease, unspecified; E78.00 Pure hypercholesterolemia, unspecified; Z87.891 Personal history of nicotine dependence; Z79.82 Long term (current) use of aspirin; Z79.51 Long term (current) use of inhaled steroids; Z79.899 Other long term (current) drug therapy; Z88.0 Allergy status to penicillin; Z91.041 Radiographic dye allergy status; Z88.7 Allergy status to serum and vaccine
CPT/HCPCS: 80048; 85025; 93971; 99284-25

== ENCOUNTER → 2025-04-20 | Outpatient (CLI) | payer MEDICARE, OTHER ==
[~2025-04-20] MED LIST changes: +ACET500 PO
== END | disposition home or self-care (01) ==
LOC: LAB SHORT 07:54 → LAB 07:54
DX: R68.89 Other general symptoms and signs (principal); R22.32 Localized swelling, mass and lump, left upper limb
CPT/HCPCS: 88305

== ENCOUNTER 2025-05-14 02:43 | Inpatient (IN) | payer MEDICARE, OTHER ==
[~2025-05-14] VITALS: Ht 177.8 cm; Wt 98.4 kg
[2025-05-14] VITALS (12 sets, daily range): BP systolic 97–140; BP diastolic 38–98
[2025-05-14 06:23] LABS: BASOPHILS ABSOLUTE AUTO 0.07 K/mm3 (0.00-0.23); BASOPHILS PERCENT AUTO 1 % (0-2); EOSINOPHILS ABSOLUTE AUTO 0.09 K/mm3 (0.00-0.68); EOSINOPHILS PERCENT AUTO 1 % (0-6); Hematocrit 31.5 % (37.0-53.0); Hemoglobin 10.3 g/dL (13.5-17.5); IMMATURE GRAN ABSOLUTE AUTO 0.04 K/mm3 (0.00-0.10); IMMATURE GRAN PERCENT AUTO 0 % (0-1); LYMPHOCYTES ABSOLUTE AUTO 1.79 K/mm3 (0.84-5.20); LYMPHOCYTES PERCENT AUTO 14 % (21-46); MONOCYTES ABSOLUTE AUTO 1.05 K/mm3 (0.16-1.47); MONOCYTES PERCENT AUTO 8 % (4-13); Mean Corpuscular HGB Conc 32.7 g/dL (31.5-36.5); Mean Corpuscular Volume 96 fL (80-100); NEUTROPHILS ABSOLUTE AUTO 9.85 K/mm3 (1.96-9.15); NEUTROPHILS PERCENT AUTO 77 % (41-73); NRBC ABSOLUTE 0.00 K/mm3 (0.00-0.02); NRBC Auto 0.0 /100 WBC (0.0-0.2); Platelet Count 309 K/mm3 (150-400); RDW Coefficient Variation 13.9 % (11.7-14.2); RDW Standard Deviation 48.5 fL (35.1-46.3)
[2025-05-14 06:37] LABS: Alanine Aminotransfer (ALT/SGP 19.0 U/L (12-78); Albumin, Blood 2.8 g/dL (3.4-5.0); Albumin/Globulin Ratio 0.7 (0.8-1.8); Anion Gap 12.0 mmol/L (3-11); Aspartate Aminotrans (AST/SGOT 30.0 U/L (12-37); Bilirubin, Total 0.8 mg/dL (0.1-1.0); Blood Urea Nitrogen 52.0 mg/dL (8-24); CO2, Blood 34.0 mmol/L (21-32); Calcium, Blood 9.6 mg/dL (8.5-10.1); Chloride, Blood 96.0 mmol/L (98-108); Creatinine, Blood 5.43 mg/dL (0.60-1.20); Globulin, Blood 4.3 g/dL (2.2-4.0); Glucose, Blood 108.0 mg/dL (70-99); Potassium, Blood 4.6 mmol/L (3.5-5.5); Sodium, Blood 137.0 mmol/L (136-145); Total Protein, Blood 7.1 g/dL (6.4-8.2)
[2025-05-14 07:14] LABS: Influenza A, PCR NEGATIVE (NEGATIVE); Influenza B, PCR NEGATIVE (NEGATIVE); Resp Syncytial Virus, PCR NEGATIVE (NEGATIVE); SARS-Cov-2 (COVID-19) PCR, MMC NEGATIVE (NEGATIVE)
[2025-05-14 09:24] LABS: Anti-Xa UFH, PHA Monitoring <0.10 IU/mL; Prothrombin Time Results 11.4 Sec (9.7-11.5)
[2025-05-14] MEDS ORDERED: Prochlorperazine Edisylate 10 mg Vial IV PRN (10:15)
[2025-05-14] MEDS ORDERED: Albuterol 2.5 MG/3 ML VIAL INH PRN (10:20)
[2025-05-14] MEDS ORDERED: Heparin Sodium,Porcine/0.5 NS 500 ML IV SCH (10:30)
[2025-05-14] MEDS ORDERED: Heparin Sodium 5000 Units/ML 1ML MDV IV ONE (10:30)
[2025-05-14] MEDS ORDERED: Formoterol/Mometasone MDI 5/200 mcg 13 GM INH SCH (11:00)
[2025-05-14] MEDS ORDERED: FLU VACC TS2025(65UP)/MF59C/PF 45 MCG/0.5 ML SYRINGE IM SCH (11:00)
[2025-05-14] MEDS ORDERED: Heparin Sodium,Porcine 5,000 UNIT/0.5 ML SDV SC SCH (11:30)
[2025-05-14] MEDS ORDERED: Darbepoetin (Pharmacy Consult) SC SCH (13:25)
[2025-05-14] MEDS ORDERED: PRED FORTE5 M1 BOTHEYES (13:40)
[2025-05-14] MEDS ORDERED: SODBIC650 PO (13:44)
[2025-05-14] MEDS ORDERED: FLUT1DIS2 INH (13:45)
[2025-05-14] MEDS ORDERED: FURO80 PO (14:04)
[2025-05-14] MEDS ORDERED: MIDO5 PO (14:04)
[2025-05-14] MEDS ORDERED: Calcium Acetate 667 MG Gel Cap PO SCH (17:30)
--- NOTE | 2025-05-14 18:15 | NUR ---
PT WAS A NEW ADMIT THIS AFTERNOON REPORT RECIEVED FROM SUZANNE MONTALVO THE PT IS A&OX4, [place], 1P MOD ASSIST W/ FWW AND GB D/T RIGHT FOOT PAIN THAT HAS BEEN IMPAIRING PT'S GAIT. 2V XRAY COMPLETED. 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 LATHAM. THE PT WAS ASLEEP WHEN THIS HAPPENED AND FLIPPED AND BACK TO A MOBTIZ TYPE 2 OUT WHEN HE WAS WOKEN UP AND ASSESSED. EKG CAPTURED AND PT IS GOING IN AND OUT OF THE 3RD DEGREE. THE PT HAS DENIED ANY ANGINA. DR. VÁSQUEZ CURRENTLY ON THE UNIT EVALUATING THE PT. EKG OBTAINED. PLAN FOR A TVP TONIGHT. BP LABILE AND GETTING SOFTER WITH 3RD DEGREE HB. THE PT IS ON 2L NC TO MAINTAIN SP02 >93%. THE PT HAS DENIED NEW INCREASED SOB. C/O CHRONIC SOB. THE PT'S SON HAS BEEN AT BEDSIDE AND UPDATED ON CARE. PLAN FOR DIALYSIS TOMORROW W/ DR. MEDINA AND POSSIBLE ANGIOGRAM WITH DR. VÁSQUEZ. SEE NOTES FOR UPDATES.
[2025-05-14] MEDS ORDERED: NS 1,000 ML IV ONE (18:57)
[2025-05-14] MEDS ORDERED: Midazolam HCl 1MG / ML 2ML Vial ONE (19:23)
[2025-05-14] MEDS ORDERED: FentaNYL Citrate 50 MCG/ML 2 ML Injection ONE (19:23)
[2025-05-14] MEDS ORDERED: Colchicine 0.6 MG TAB PO SCH (21:00)
--- NOTE | 2025-05-14 21:55 | NUR ---
PT PACEMAKER NOT SENSING/CAPTURING PROPERLY. DR LATHAM WAS NOTIFIED. ORDERS WERE GIVEN. PT REPORTS CHEST PAIN THAT IS THE SAME PAIN HE HAD IN THE [facility]. DR LATHAM WAS NOTIFIED. ORDERS GIVEN FOR TYLENOL. PT IS SAYING THAT CHEST PAIN HAS RESOLVED. DR LATHAM STATES HE WILL COME TO BEDSIDE.
[2025-05-15] VITALS (33 sets, daily range): BP systolic 91–147; BP diastolic 45–93
[2025-05-15 03:33] LABS: BASOPHILS ABSOLUTE AUTO 0.04 K/mm3 (0.00-0.23); BASOPHILS PERCENT AUTO 0 % (0-2); EOSINOPHILS ABSOLUTE AUTO 0.11 K/mm3 (0.00-0.68); EOSINOPHILS PERCENT AUTO 1 % (0-6); Hematocrit 30.2 % (37.0-53.0); Hemoglobin 9.9 g/dL (13.5-17.5); IMMATURE GRAN ABSOLUTE AUTO 0.06 K/mm3 (0.00-0.10); IMMATURE GRAN PERCENT AUTO 1 % (0-1); LYMPHOCYTES ABSOLUTE AUTO 1.54 K/mm3 (0.84-5.20); LYMPHOCYTES PERCENT AUTO 12 % (21-46); MONOCYTES ABSOLUTE AUTO 1.02 K/mm3 (0.16-1.47); MONOCYTES PERCENT AUTO 8 % (4-13); Mean Corpuscular HGB Conc 32.8 g/dL (31.5-36.5); Mean Corpuscular Volume 95 fL (80-100); NEUTROPHILS ABSOLUTE AUTO 9.78 K/mm3 (1.96-9.15); NEUTROPHILS PERCENT AUTO 78 % (41-73); NRBC ABSOLUTE 0.00 K/mm3 (0.00-0.02); NRBC Auto 0.0 /100 WBC (0.0-0.2); Platelet Count 260 K/mm3 (150-400); RDW Coefficient Variation 13.8 % (11.7-14.2); RDW Standard Deviation 47.8 fL (35.1-46.3)
[2025-05-15 03:53] LABS: Alanine Aminotransfer (ALT/SGP 13.0 U/L (12-78); Albumin, Blood 2.5 g/dL (3.4-5.0); Albumin/Globulin Ratio 0.7 (0.8-1.8); Anion Gap 13.0 mmol/L (3-11); Aspartate Aminotrans (AST/SGOT 17.0 U/L (12-37); Bilirubin, Total 0.9 mg/dL (0.1-1.0); Blood Urea Nitrogen 72.0 mg/dL (8-24); CO2, Blood 31.0 mmol/L (21-32); Calcium, Blood 9.1 mg/dL (8.5-10.1); Chloride, Blood 95.0 mmol/L (98-108); Creatinine, Blood 7.5 mg/dL (0.60-1.20); Globulin, Blood 3.8 g/dL (2.2-4.0); Glucose, Blood 103.0 mg/dL (70-99); Phosphorus, Blood 6.1 mg/dL (2.5-4.9); Potassium, Blood 4.2 mmol/L (3.5-5.5); Sodium, Blood 135.0 mmol/L (136-145); Total Protein, Blood 6.3 g/dL (6.4-8.2)
--- NOTE | 2025-05-15 04:53 | NUR ---
SPOKE TO DR MEDINA REGARDING PT LABS, NO ORDERS GIVEN AT THIS TIME
--- NOTE | 2025-05-15 05:38 | NUR ---
SHIFT SUMMERY PT HAS BEEN ALERT AND ORIENTED X4. HE CONTINUES TO BE TVP 66/4/2 W/TVP AT 38 CM. BP WNL. PT OXYGEN SAT HAS BEEN >92% ON 2L NC. TYLENOL WAS GIVEN EARLIER FOR PAIN THAT HAS RESOLVED. PT HAS VOIDED ONCE IN THE URINAL. NO BM. NPO AFTER MIDNIGHT. BP WNL. AFEBRILE. PT HAS HAD NO ACUTE DISTRESS THIS SHIFT.
--- NOTE | 2025-05-15 07:30 | NUR ---
ASSUMPTION OF CARE NOTE: PT IS RELAXING IN BED AND TEMPORARY PACEMAKER IS PATENT AND SETTINGS OF 66/4/2. PT REMAINS NPO SINCE MIDNIGHT WITH PO MEDICATION EXCEPTION. [place] FLUID RESTRICTION. A&OX4. CURRENTLY ON 2LNC AND SPO2 >96%. MAP>65 NO COMPLAINTS OF CP THIS MORNING. DIALYSIS TODAY IN ROOM. PATENT PIV'S TO RFA AND RAC. FISTULA TO HERMINIA. VERY SMALL AMOUNTS OF URINE FROM PT REPORTED BY NIGHTSHIFT AND PT USES URINAL WHEN NEEDED. CALL LIGHT IN REACH AND BED LOW AND LOCKED FOR SAFETY.
--- NOTE | 2025-05-15 09:42 | NUR ---
consult received and reviewed medical record. no polst/ad on file.
[2025-05-15] MEDS ORDERED: Verapamil HCL 2.5 MG/ML 2ML Injection ONE (11:47)
[2025-05-15] MEDS ORDERED: Heparin Sodium 1000 Units/ML 10ML MDV ONE (11:47)
[2025-05-15] MEDS ORDERED: NS 1,000 ML IV ONE ×2 (11:47→12:19)
[2025-05-15] MEDS ORDERED: NS 250 ML IV ONE (11:48)
[2025-05-15] MEDS ORDERED: Nitroglycerin 2 MG/20 ML BTL ONE (11:49)
--- NOTE | 2025-05-15 12:01 | NUR ---
PT UPDATE PT TO [facility] WITH [facility] STAFF. PT A&O X4, VSS.
[2025-05-15] MEDS ORDERED: Midazolam HCl 1MG / ML 2ML Vial ONE (12:19)
[2025-05-15] MEDS ORDERED: FentaNYL Citrate 50 MCG/ML 2 ML Injection ONE (12:19)
[2025-05-15] MEDS ORDERED: DiphenhydrAMINE HCl 50 MG/ML 1ML Vial ONE (12:19)
--- NOTE | 2025-05-15 13:55 | NUR ---
PT UPDATE: PT RETURNED TO UNIT FROM [facility] AT 1325.PT HAS TR BAND TO R RADIAL-DRESSING IS C/D/I WITH ARMBOARD IN PLACE. SITE SOFT AND NO SIGNS OF HEMATOMA. PT A&OX4. VSS. TEMP PACER IN PLACE TO RIJ-SUTURED IN PLACE, DRESSING C/D/I. SETTINGS: 60/4/2.BED IN LOWEST POSITION AND CALL LIGHT IN REACH.
--- NOTE | 2025-05-15 17:35 | NUR ---
SHIFT SUMM: PT IS RELAXING AND HAS TEMPORARY PACER STILL PACING NOW AT 60/4/2. PT WENT TO [facility] TODAY FOR ANGIOGRAM AND HAS TR BAND TO R RADIAL THAT IS SLOWLY BEING DEFLATED PER PARAMETERS. PT IS A&OX4 AND IS GOING TO BE TRANSFERRED BY AMBULANCE TO [facility] BY AMBULANCE. PT PIV TO RFA REMAINS PATENT. PT HAD A BM TODAY ON BEDPAN AND OUTPUT OF 100ML OF URINE. PT RECIEVED HEMODIALYSIS IN THE ROOM TODAY AND 1.5 L WAS REMOVED. PT IS ON A 1LFLUID RESTRICTION. MAP >65 AND SPO2 >96%. SON AT BEDSIDE MOST OF THE DAY. SON UPDATED ON PLAN OF CARE AND TRANSFER. PT HAS CALL LIGHT IN REACH AND BED LOW AND LOCKED FOR SAFETY AND PREPARING FOR TRANSFER.
--- NOTE | 2025-05-15 18:15 | NUR ---
TR BAND REMOVAL: R RADIAL TR BAND REMOVED AT 181, SITE IS INTACT WITH NO BLEEDING. TAGADERM DRESSING APPLIED C/D/I. ARM BOARD REMAINS IN PLACE
--- NOTE | 2025-05-15 18:19 | NUR ---
PT UPDATE REPORT CALLED TO [facility]ANGEL[facility] RODRÍGUEZ [facility]
[2025-05-15] MEDS ORDERED: PrednisoLONE 1% Opth Susp 5 ML BOTHEYES SCH (21:00)
== END 2025-05-15 18:40 | disposition short-term general hospital (02) | DRG 286 ==
LOC: ER 02:43 → PCU 10:14 → ICUE 10:14
PROVIDERS: Emergency Medicine; ADMIT Internal Medicine
PROC: 5A1223Z Performance of Cardiac Pacing, Continuous (ICD-10-PCS; 2025-05-14)
PROC: 4A023N6 Measurement of Cardiac Sampling and Pressure, Right Heart, Percutaneous Approach (ICD-10-PCS; principal; 2025-05-15)
PROC: B2111ZZ Fluoroscopy of Multiple Coronary Arteries using Low Osmolar Contrast (ICD-10-PCS; 2025-05-15)
DX: I35.0 Nonrheumatic aortic (valve) stenosis (principal); I50.33 Acute on chronic diastolic (congestive) heart failure; N18.6 End stage renal disease; I13.2 Hypertensive heart and chronic kidney disease with heart failure and with stage 5 chronic kidney disease, or end stage renal disease; J84.9 Interstitial pulmonary disease, unspecified; N25.81 Secondary hyperparathyroidism of renal origin; I44.2 Atrioventricular block, complete; R07.89 Other chest pain; D63.1 Anemia in chronic kidney disease; J44.9 Chronic obstructive pulmonary disease, unspecified; E78.5 Hyperlipidemia, unspecified; N40.0 Benign prostatic hyperplasia without lower urinary tract symptoms; M10.9 Gout, unspecified; F41.9 Anxiety disorder, unspecified; I25.10 Atherosclerotic heart disease of native coronary artery without angina pectoris; Z90.89 Acquired absence of other organs; Z90.49 Acquired absence of other specified parts of digestive tract; Z79.51 Long term (current) use of inhaled steroids; Z79.82 Long term (current) use of aspirin; Z79.899 Other long term (current) drug therapy; Z87.891 Personal history of nicotine dependence; Z88.0 Allergy status to penicillin; Z88.7 Allergy status to serum and vaccine
CPT/HCPCS: 33210; 36415; 71045; 71046; 73600; 76937; 80053; 83880; 84100; 84484; 85025; 85520; 85610; 85730; 87637; 93005; 93010; 93456; 94640; 94664; 94762; 99152; 99285-25; A9270; C1769; C1887; C1894; J1200; J1644; J2250; J3010; J7030; J7040; J7050; Q9967